=== PATIENT | female | born 1980 | race Caucasian/White ===

== ENCOUNTER 2022-05-21 21:27 | Emergency (ER) | payer OTHER ==
[~2022-05-21] VITALS: Ht 162.6 cm; Wt 79.4 kg
--- NOTE | 2022-05-21 21:40 | NUR ---
BIBH DUE TO LACERATION ON LT KNEE APPROXIMATELY 6CM WITH A PAIN SCALE OF 3/10. PT IS AAOX4. PLACED COMFORTABLY IN BED. VS CHECKED.
--- NOTE | 2022-05-21 21:44 | NUR ---
NEEDS ATTENDED. SKIN PREP DONE. PT FOR SUTURING OF LACERATED WOUND ON LT KNEE.
[2022-05-21] MEDS ORDERED: TDAP [DIPH/PERTUSSIS/TET] 0.5 ML VIAL IM ONE ×2 (21:46→22:00)
--- NOTE | 2022-05-21 22:20 | NUR ---
SUTURING OF LACERATED WOUND DONE BY DR MULLINS UNDER LOCAL ANESTHESIA. THERE WERE 12 STITCHES ON THE WOUND
--- NOTE | 2022-05-21 23:34 | NUR ---
Patient discharged to home in stable condition. Written and verbal after care instructions given. Patient verbalizes understanding of instruction.
--- NOTE | 2022-05-21 23:34 | NUR ---
PATIENT PROVIDED WITH CRUTCHES AND BEEN EDUCATED BY EMT ON HOW TO USE IT.
[2022-05-21 23:35] VITALS: BP 112/81
== END 2022-05-21 23:44 | disposition home or self-care (01) ==
LOC: ER 21:34
DX: S81.012A Laceration without foreign body, left knee, initial encounter (principal); Z88.5 Allergy status to narcotic agent; W18.09XA Striking against other object with subsequent fall, initial encounter; Y93.01 Activity, walking, marching and hiking; Y92.098 Other place in other non-institutional residence as the place of occurrence of the external cause; Y99.8 Other external cause status
CPT/HCPCS: 99284; 12032; 90471; 90715; A6403